=== PATIENT | male | born 2000 | race Caucasian/White ===

== ENCOUNTER 2021-04-06 18:49 | Emergency (ER) | payer OTHER ==
[2021-04-06] MEDS ORDERED: IBUPROFEN600 MG PO (20:32)
[2021-04-06] MEDS ORDERED: ZOFRAN4 MG PO (20:32)
[2021-04-06] MEDS ORDERED: NORFLEX 100 MG100 MG PO (20:32)
== END 2021-04-06 20:59 | disposition home or self-care (01) ==
LOC: ER1 18:49
DX: S09.90XA Unspecified injury of head, initial encounter (principal); S16.1XXA Strain of muscle, fascia and tendon at neck level, initial encounter; V49.40XA Driver injured in collision with unspecified motor vehicles in traffic accident, initial encounter; Y92.410 Unspecified street and highway as the place of occurrence of the external cause
CPT/HCPCS: 99283